=== PATIENT | female | born 1980 | race Caucasian/White ===

== ENCOUNTER 2017-01-09 20:42 | Emergency (ER) | payer MEDICAID ==
[2017-01-09 22:06] LABS: BASOPHIL % 0.6 % (0-2); PLATELET COUNT 267 x10^3mcL (130-400); RED CELL DISTRIBUTION WIDTH 12.9 % (11.5-14.5)
[2017-01-09 22:16] LABS: CALCIUM 9.1 mg/dL (8.5-10.1); CARBON DIOXIDE 21.5 mmol/L (21-32); CHLORIDE SERUM 104 mmol/L (98-107); CREATININE SERUM 0.7 mg/dL (0.6-1.0); GFR1 > 60 mL/min; GLUCOSE SERUM 157 mg/dL (74-106); POTASSIUM SERUM 3.7 mmol/L (3.5-5.1); SODIUM SERUM 138 mmol/L (136-145)
[2017-01-09 22:21] LABS: ALBUMIN 3.5 g/dL (3.4-5.0); ALKALINE PHOSPHATASE 71 U/L (46-116); ALT/SGPT 21 U/L (14-59); AST/SGOT 13 U/L (15-37); BILIRUBIN TOTAL 0.61 mg/dL (0.20-1.00); TOTAL PROTEIN, SERUM 7.2 g/dL (6.4-8.2)
[2017-01-09 23:53] VITALS: BP 121/72
== END 2017-01-09 23:53 | disposition home or self-care (01) ==
LOC: ED 20:42
PROVIDERS: Emergency Medicine
DX: J40 Bronchitis, not specified as acute or chronic (principal); R73.9 Hyperglycemia, unspecified; E66.01 Morbid (severe) obesity due to excess calories
CPT/HCPCS: 36600; 83880; J1885; J2765; J7613; J7644

== ENCOUNTER 2017-05-14 07:13 | Emergency (ER) | payer MEDICAID ==
[2017-05-14 09:05] LABS: UA SPECIFIC GRAVITY 1.025 (1.005-1.035); microscopic required? YES; urine erythrocyte 2+ (NEGATIVE)
[2017-05-14 09:43] VITALS: BP 120/64
== END 2017-05-14 09:43 | disposition home or self-care (01) ==
LOC: ED 07:13
PROVIDERS: Emergency Medicine
DX: J02.0 Streptococcal pharyngitis (principal); M79.1 Myalgia
CPT/HCPCS: J1885

== ENCOUNTER 2017-06-18 13:52 | Emergency (ER) | payer MEDICAID ==
[~2017-06-18] VITALS: Ht 162.6 cm; Wt 108.0 kg
[2017-06-18 14:15] VITALS: Ht 162.6 cm; Wt 108.0 kg
[2017-06-18 19:58] VITALS: BP 147/94
== END 2017-06-18 19:58 | disposition home or self-care (01) ==
LOC: ED 13:52
DX: B34.9 Viral infection, unspecified (principal)
CPT/HCPCS: J7613

== ENCOUNTER 2018-02-06 09:53 | Emergency (ER) | payer MEDICAID ==
[~2018-02-06] VITALS: Ht 160 cm; Wt 109.8 kg
[2018-02-06 10:00] VITALS: Ht 160 cm; Wt 109.8 kg
[2018-02-06 14:25] VITALS: BP 135/63
== END 2018-02-06 14:25 | disposition home or self-care (01) ==
LOC: ED 09:53
DX: J20.9 Acute bronchitis, unspecified (principal)
CPT/HCPCS: J7512; J7620

== ENCOUNTER 2018-08-11 16:10 | Emergency (ER) | payer MEDICAID | END 2018-08-11 18:43 | disposition left against medical advice (07) | LOC: ED 16:10 | DX: Z53.21 Procedure and treatment not carried out due to patient leaving prior to being seen by health care provider (principal) ==

== ENCOUNTER 2019-06-08 06:17 | Emergency (ER) | payer MEDICAID ==
[~2019-06-08] VITALS: Ht 162.6 cm; Wt 87.7 kg
[2019-06-08 06:21] VITALS: Ht 162.6 cm; Wt 87.7 kg
[2019-06-08 09:49] VITALS: BP 130/67
== END 2019-06-08 10:00 | disposition home or self-care (01) ==
LOC: ED 06:17
DX: J11.1 Influenza due to unidentified influenza virus with other respiratory manifestations (principal); E11.9 Type 2 diabetes mellitus without complications; H92.03 Otalgia, bilateral
CPT/HCPCS: 87804